=== PATIENT | female | born 1975 | race Caucasian/White ===

== ENCOUNTER 2019-03-26 23:47 | Emergency (ER) | payer OTHER ==
[2019-03-27 03:17] VITALS: BP 134/76
== END 2019-03-27 03:18 | disposition home or self-care (01) ==
LOC: ED 23:47
DX: M54.5 Low back pain (principal); M54.6 Pain in thoracic spine; M54.16 Radiculopathy, lumbar region; Z90.710 Acquired absence of both cervix and uterus; Y04.0XXA Assault by unarmed brawl or fight, initial encounter